=== PATIENT | female | born 1970 | race Two or more races ===

== ENCOUNTER 2020-07-20 10:27 | Emergency (ER) | payer BC, SELFPAY ==
[2020-07-20 10:46] VITALS: BP 137/73; PULSE 84; RESP 16; TEMP 37; BMI 41.5
[2020-07-20 10:46] LABS: Glucose, Whole Blood 448 mg/dL (60-115)
--- NOTE | 2020-07-20 10:55 | ED.GENADULT ---
HPI - General Adult General Chief complaint: General Medical Stated complaint: HIGH BLOOD SUGAR Time Seen by Provider: 07/20/20 10:50 Source: patient Mode of arrival: ambulatory Limitations: no limitations History of Present Illness HPI narrative: patient comes to emergency room complaining of high blood sugar. Patient states earlier this morning she was at work, started not feeling right, slightly lightheaded, patient took her blood sugar and was 448. Patient states usually her blood sugar runs in the mid 150s to 200s. Patient denies any blurry vision, states she has a mild headache, no chest pain Related Data Allergies Allergy/AdvReac Type Severity Reaction Status Date / Time No Known Allergies Allergy Unverified 06/15/20 16:49 Review of Systems Review of Systems: Constitutional : No Weight loss, No Fever, No Chills, No Night Sweats, No Fatigue, No Malaise ENT/Mouth : No Hearing loss, No Ear Pain, No Nasal Congestion, No Sinus Pain, No Hoarseness, No sore throat, No Rhinorrhea, No Swallowing Difficulty Eyes: No Eye Pain, No Swelling, No Redness, No Foreign Body, No Discharge, No Vision Changes Cardiovascular : No Chest Pain, No SOB, No Dyspnea on Exertion, No Orthopnea, No Edema, No Palpitations Respiratory : No Cough, No Sputum, No Wheezing, No Smoke Exposure, No Dyspnea Gastrointestinal : No Nausea, No Vomiting, No Diarrhea, No Constipation, No abdominal Pain, No Hematochezia, No Melena Genitourinary : no irregular bleeding, No Dysuria, No Urinary Frequency, No Hematuria, No Urinary Incontinence, No Urgency, No Flank Pain, No Urinary Flow Changes, No Hesitancy Musculoskeletal : No joint pain, No Myalgias, No Joint Swelling Skin : No Skin Lesions, No rash Neuro : No Weakness, No Numbness, No Paresthesias, No Loss of Consciousness, mild lightheadedness, No Headache Psych : No Anxiety/Panic, No Depression, No SI/HI/AH/VH, No Social Issues, Heme/Lymph: No Bruising, No Bleeding,No Lymphadenopathy Endocrine : No Polyuria, No Polydipsia, No Temperature Intolerance PMF Past Medical History Medical History Diabetes mellitus, type 2 Hypertension Hypertension Social History Social History Advance Directives: No Advance Directives Information Provided: Yes Physical Exam Vital Signs: Vital Signs: Vital Signs Temp Pulse Resp BP Pulse Ox 07/20/20 14:00 98.0 F 66 18 123/78 98 07/20/20 13:41 98.0 F 69 18 124/77 97 07/20/20 11:40 97.9 F 74 18 129/76 94 07/20/20 10:46 98.6 F 84 16 137/73 Body Mass Index 41.5 Appearance: Alert. Oriented X3. No acute distress. Eyes: Pupils equal, round and reactive to light. ENT: Pharynx normal. Neck: Normal inspection. Neck supple. No lymph nodes noted. No crepitus CVS: Normal heart rate and rhythm. Pulses normal. Normal S1 and S2 Respiratory: No respiratory distress. Breath sounds normal. No Wheezing. No rales Abdomen: Soft and nontender. No rigidity. No distention. good BS x4 Skin: Skin warm and dry. Normal skin color. Normal skin turgor. Extremities: No lower extremity edema. No lower extremity edema. No Lacerations. No Rash Neuro: Oriented X 3. No motor deficit. No sensory deficit. Moving all extermities. No slurred speech. Medical Decision Making MDM Narrative Medical decision making narrative: patient's blood glucose decreased to 194, patient asymptomatic. Patient will follow-up with her primary care physician, at this time we will not change any of her medications for diabetes. Lab Data Result diagrams: 07/20/20 11:07 07/20/20 11:07 Labs: Lab Results 07/20/20 07/20/20 07/20/20 Range/Units 10:42 11:07 11:07 WBC 7.0 (4.8-10.8) X10*3/uL RBC 5.11 (4.20-5.50) X10*6/uL Hgb 15.5 (12.0-16.0) g/dl Hct 45.3 (37-47) % MCV 88.6 (80-98) fL MCH 30.3 (27.0-33.0) pg MCHC 34.2 (31.0-35.0) g/dl RDW 12.0 (11.0-16.0) % Plt Count 128 L (160-400) X10*3/uL MPV 11.1 (9.4-12.3) fL Immature Gran % (Auto) 0.3 (0.0-0.4) % Neut % (Auto) 60.9 (45-73) % Lymph % (Auto) 31.8 (20-40) % [place] % (Auto) 5.4 (2-11) % Eos % (Auto) 1.3 (0-4) % Baso % (Auto) 0.3 (0-2) % Lymph # (Auto) 2.2 (1.2-4.9) X10*3/uL [place] # (Auto) 0.4 (0.1-1.2) X10*3/uL Eos # (Auto) 0.1 (0.0-0.4) X10*3/uL Baso # (Auto) 0.0 (0.0-0.2) X10*3/uL Abs Immat Gran (auto) 0.02 (0.00-0.03) X10*3/uL Absolute Neuts (auto) 4.3 (2.0-8.3) X10*3/uL Absolute Nucleated RBC 0.000 (0.0-0.012) X10*3/uL Nucleated RBC % (auto) 0.0 (0.0-0.2) /100WBC Sodium 134 L (135-145) mmol/L Potassium 4.4 (3.3-5.1) mmol/l Chloride 100 (96-108) mmol/L Carbon Dioxide 25 (22-29) mmol/L Anion Gap 13 (12-20) BUN 13 (9-16) mg/dL Creatinine 0.99 (0.5-1.4) mg/dL Estim Creat Clear Calc 78.1 Estimated GFR 60 POC Glucose 448 H* (60-115) mg/dL Random Glucose 457 H* (60-115) mg/dL Calcium 9.1 (8.4-10.2) mg/dL 07/20/20 Range/Units 12:46 WBC (4.8-10.8) X10*3/uL RBC (4.20-5.50) X10*6/uL Hgb (12.0-16.0) g/dl Hct (37-47) % MCV (80-98) fL MCH (27.0-33.0) pg MCHC (31.0-35.0) g/dl RDW (11.0-16.0) % Plt Count (160-400) X10*3/uL MPV (9.4-12.3) fL Immature Gran % (Auto) (0.0-0.4) % Neut % (Auto) (45-73) % Lymph % (Auto) (20-40) % [place] % (Auto) (2-11) % Eos % (Auto) (0-4) % Baso % (Auto) (0-2) % Lymph # (Auto) (1.2-4.9) X10*3/uL [place] # (Auto) (0.1-1.2) X10*3/uL Eos # (Auto) (0.0-0.4) X10*3/uL Baso # (Auto) (0.0-0.2) X10*3/uL Abs Immat Gran (auto) (0.00-0.03) X10*3/uL Absolute Neuts (auto) (2.0-8.3) X10*3/uL Absolute Nucleated RBC (0.0-0.012) X10*3/uL Nucleated RBC % (auto) (0.0-0.2) /100WBC Sodium (135-145) mmol/L Potassium (3.3-5.1) mmol/l Chloride (96-108) mmol/L Carbon Dioxide (22-29) mmol/L Anion Gap (12-20) BUN (9-16) mg/dL Creatinine (0.5-1.4) mg/dL Estim Creat Clear Calc Estimated GFR POC Glucose 325 H (60-115) mg/dL Random Glucose (60-115) mg/dL Calcium (8.4-10.2) mg/dL Discharge Plan Discharge Clinical Impression: Hyperglycemia due to diabetes mellitus Patient Disposition: Home, Self-Care Instructions: Diabetic Hyperglycemia (ED), Diabetes and Exercise (ED) Additional Instructions: Please follow-up with your primary care physician tomorrow. If you have any worsening or new symptoms, please return to the emergency room or call 911
[2020-07-20 11:11] LABS: MANUAL DIFF FLAG NO
[2020-07-20] MEDS: 0.9 % Sodium Chloride 1,000 ML 999 ML IVCONT (11:13)
[2020-07-20] MEDS: Insulin Regular, Human 100 UNIT/ML 3 ML VIAL 10 UNIT IVPUSH ×2 (11:13→14:32)
[2020-07-20 11:15] LABS: Basophils Percent Auto 0.3 % (0-2); Eosinophils Absolute Auto 0.1 X10*3/uL (0.0-0.4); Eosinophils Percent Auto 1.3 % (0-4); Hematocrit 45.3 % (37-47); Hemoglobin 15.5 g/dl (12.0-16.0); Imm Gran Abs Auto 0.02 X10*3/uL (0.00-0.03); Imm Gran Pct Auto 0.3 % (0.0-0.4); Lymphocytes Absolute Auto 2.2 X10*3/uL (1.2-4.9); Lymphocytes Percent Auto 31.8 % (20-40); Mean Corpuscular HGB Conc 34.2 g/dl (31.0-35.0); Mean Corpuscular Hemoglobin 30.3 pg (27.0-33.0); Mean Corpuscular Volume 88.6 fL (80-98); Mean Platelet Volume 11.1 fL (9.4-12.3); Monocytes Absolute Auto 0.4 X10*3/uL (0.1-1.2); Monocytes Percent Auto 5.4 % (2-11); Neutrophils Absolute Auto 4.3 X10*3/uL (2.0-8.3); Neutrophils Percent Auto 60.9 % (45-73); Platelet Count 128 X10*3/uL (160-400); Red Blood Count 5.11 X10*6/uL (4.20-5.50)
[2020-07-20 11:39] LABS: Anion Gap 13 (12-20); Blood Urea Nitrogen 13 mg/dL (9-16); Calcium 9.1 mg/dL (8.4-10.2); Carbon Dioxide 25 mmol/L (22-29); Chloride 100 mmol/L (96-108); Creatinine Clr Calc Pharmacy 78.1; Estimated Glomerular Filt Rate 60; Glucose Random 457 mg/dL (60-115); Potassium 4.4 mmol/l (3.3-5.1); Sodium 134 mmol/L (135-145)
[2020-07-20 11:40] VITALS: BP 129/76; PULSE 74; RESP 18; TEMP 36.6; O2SAT 94
[2020-07-20 12:50] LABS: Glucose, Whole Blood 325 mg/dL (60-115)
--- NOTE | 2020-07-20 13:15 | PC.NURSE ---
PT AMBULATED TO BATHROOM W/STEADY GAIT.
[2020-07-20 13:41] VITALS: BP 124/77; PULSE 69; RESP 18; TEMP 36.7; O2SAT 97
[2020-07-20 14:00] VITALS: BP 123/78; PULSE 66; RESP 18; TEMP 36.7; O2SAT 98
[2020-07-20 15:47] LABS: Glucose, Whole Blood 193 mg/dL (60-115)
== END 2020-07-20 16:09 | disposition home or self-care (01) ==
PROVIDERS: Emergency Provider Emergency Medicine; PCP Internal Medicine Geriatric Medicine
DX: E11.65 Type 2 diabetes mellitus with hyperglycemia (principal); Z79.899 Other long term (current) drug therapy
CPT/HCPCS: 36415; 80048; 82947; 85025; 96361; 96374; 96376; 99284

== ENCOUNTER → 2024-04-30 10:43 | Outpatient (BNVA) | payer BC, SELFPAY | PROVIDERS: PCP Internal Medicine Geriatric Medicine; Visit Provider Surgery ==

== ENCOUNTER 2025-05-31 15:55 | Emergency (ER) | payer BC, SELFPAY ==
[2025-05-31 15:58] VITALS: BP 161/86; PULSE 98; RESP 18; TEMP 36.9; O2SAT 96; BMI 35.4
--- NOTE | 2025-05-31 16:00 | ED.EYEPROB ---
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 She reports for about 2 weeks she has had swelling to her right upper eyelid. Today in his more painful and swollen and she now has pain around the eye itself. She reports occasional discharge from the right eye. She reports blurry vision. She wears glasses but did not bring them with her she never wears contacts denies any trauma to the eye Related Data Home Medications ?Medication ?Instructions ?Recorded ?Confirmed dulaglutide 1.5 mg/0.5 mL 1.5 mg subcut QWEEK 05/07/24 subcutaneous pen injector (Trulicity) Previous Rx's ?Medication ?Instructions ?Recorded atorvastatin 20 mg tablet 20 mg PO QPM #20 tabs 02/20/21 lisinopril 20 mg tablet 20 mg PO DAILY #20 tabs 02/20/21 metformin 1,000 mg tablet 1,000 mg PO BID #30 tabs 02/20/21 lidocaine 5 % topical patch 1 patch topical DAILY #15 ea 12/12/23 (Lidoderm) naproxen 500 mg tablet 500 mg PO BID PRN pain #30 tabs 12/12/23 peg 3350-electrolytes 236 240 ml PO Q10M colonoscopy #4,000 12/26/23 gram-22.74 gram-6.74 gram-5.86 mL gram solution (Golytely) amoxicillin 875 mg-potassium 1 tab PO Q12H #14 tabs 05/31/25 clavulanate 125 mg tablet ciprofloxacin HCl 0.3 % eye See Rx Instructions ophthalmic 05/31/25 ointment (eye) .COMPLEX #3.5 grams Allergies Allergy/AdvReac Type Severity Reaction Status Date / Time No Known Allergies Allergy Verified 05/31/25 16:00 Review of Systems Constitutional: Constitutional: Denies body ache(s) and Denies headache(s) Eyes: Eyes: Reports blurry vision, Denies diplopia, Reports eye discharge, Reports irritation, Reports itchy eyes and Reports eye pain ENT: Denies headache(s) Neurologic: Denies headache(s) Allergic/Immunologic: Allergic/Immunologic: Reports itchy eyes PMFSH Past Medical History Medical History (Updated 05/31/25 @ 16:37 by Rangel Guzman) Acute depression Anxiety High cholesterol Hypertension Hypertension Diabetes mellitus, type 2 Surgical History (Updated 12/02/24 @ 15:08 by Essie Montgomery CNA) H/O: hysterectomy Social History Social History (System 12/02/24 @ 15:08 by Essie Montgomery CNA) Alcohol intake: former Tobacco use type: Cigarette Cigarettes Per Day: 6 Advance Directives: No Advance Directives Information Provided: No Physical Exam Vital Signs: Vital Signs: Last Vital Signs Temp 98.5 F 05/31/25 16:41 Pulse 98 05/31/25 16:41 Resp 18 05/31/25 16:41 BP 161/86 H 05/31/25 16:41 Pulse Ox 96 05/31/25 16:41 O2 Del Method Room Air 05/31/25 16:41 BMI result Body Mass Index 35.4 Const: General: healthy appearing, comfortable, no acute distress, alert and awake Nutritional Appearance: well nourished Orientation/consciousness: patient oriented x3 HEENT: Head: Yes normocephalic and Yes atraumatic Eyes: Other: there is mild tenderness in the right periorbital region on the temporal side. No significant erythema or wounds. Visual Singleton: normal visual singleton by confrontation Alignment and Position: alignment normal Periorbital: periorbital findings abnormal ( there is mild right upper eyelid edema) Eyelids: Yes eyelid abnormality Conjunctivae: conjunctivae normal Sclerae: sclerae normal Corneas: corneas normal Pupils: Equal, round and reactive pupils present EOM: EOMs intact bilaterally Direct Ophthalmoscopy: normal light reflex, no photophobia and no papilledema Neck: Neck: Yes full ROM Resp: Effort & Inspection: normal respiratory effort, able to speak in complete sentences and not labored Cardio: Rate: regular rate Rhythm: regular rhythm Skin: General skin exam: elasticity normal Neuro: General: patient oriented x3 Cranial nerves: Yes CN's II-XII intact bilaterally, Yes Equal, round and reactive pupils present and Yes Bilaterally intact EOM present Cognition (Neuro): normal cognition Course Course Course Narrative: This is a Rapid Medical Examination (RME) performed by Daniela Payne PA-C in triage. Full HPI, ROS, assessment and treatment plan per primary provider in the Main ED. Hx: 55 yo F hx DM here for eval of right eye pain x2 weeks, worsening. currently staying with her sister who has a dog - is unsure if this is allergy related. reports pain/swelling/itching to right eye. does not recall getting anything in her eye. reports eye sometimes feels stuck shut. does not wear corrective lenses. PE/vitals: noted swelling to right periorbital region and right upper eyelid. pain w/ lateral movement of right eye. Plan: Tetracaine/fluorescein, visual acuity Medications Administered Discontinued Medications Generic Name Dose Route Start Last Admin Trade Name Ale PRN Reason Stop Dose Admin Fluorescein Sodium 1 strip 05/31/25 16:00 05/31/25 16:05 Fluorescein Sodium Strip EYE-RIGHT 05/31/25 16:01 1 strip ONCE ONE Administration Tetracaine HCl 1 drop 05/31/25 16:00 05/31/25 16:05 Tetracaine Hcl/Pf 0.5% Oph Linette 4 Ml Drops EYE-RIGHT 05/31/25 16:01 1 drop ONCE ONE Administration Medical Decision Making Medical Decision Making MDM Narrative: 55-year-old female presents for evaluation of right eyelid pain and swelling. On exam she appears to have a hordeolum, this started about 2 weeks ago and she does complain of some discharge from the eye. Fluorescein staining was performed showing no uptake to suggest corneal abrasion or iritis. The patient has no concerning signs for retinal detachment. Her visual acuity is poor, she was 20/50 bilaterally, 20/40 in the unaffected left eye and 20/70 with the right eye, though she was not wearing her corrective lenses. Intra-ocular pressure was obtained in the affected right eye with a result of 15.3 mmHg. This rules out glaucoma, no foreign body visualized. The patient's physical exam is actually reassuring, however given the tenderness in the temporal region we will start her on Augmentin in addition to ciprofloxacin ointment Differential Diagnosis Differential Diagnoses: The differential diagnosis associated with the presentation includes hordeolum Conjunctivitis Blepharitis Preseptal cellulitis less likely Discharge Plan Discharge Clinical Impression: Hordeolum of right eye Patient Disposition: Home, Self-Care Instructions: Stye (ED) Additional Instructions: it looks like you have a stye of the right eye. I recommend warm compresses for 10-15 minutes every 4 hours use the ciprofloxacin eye ointment as prescribed. Take Augmentin twice daily for 1 week you may follow up with Ophthalmology if her symptoms are not improving, return to the ER if they are worsening Prescriptions: New amoxicillin-pot clavulanate 875-125 mg tablet 1 tab PO Q12H Qty: 14 0RF ciprofloxacin HCl 0.3 % ointment See Rx Instructions .ROUTE .COMPLEX Qty: 3.5 0RF Rx Instructions: apply 1/2 inch ribbon into affected eye(s) 3 times daily for 2 days; then twice daily for 5 days No Action Trulicity 1.5 mg/0.5 mL pen injector 1.5 mg subcut QWEEK metformin 1,000 mg tablet 1,000 mg PO BID Qty: 30 0RF lisinopril 20 mg tablet 20 mg PO DAILY Qty: 20 0RF atorvastatin 20 mg tablet 20 mg PO QPM Qty: 20 0RF naproxen 500 mg tablet 500 mg PO BID PRN (Reason: pain) Qty: 30 0RF lidocaine [Lidoderm] 5 % adhesive patch,medicated 1 patch topical DAILY Qty: 15 0RF Rx Instructions: leave on most painful area for up to 12 hrs peg 3350-electrolytes [Golytely] 236-22.74-6.74 -5.86 gram recon soln 240 ml PO Q10M Qty: 4000 0RF Rx Instructions: as per split prep instructions, until fecal effluent is clear Interventions: ED Discharge Assessment Last Done: 05/31/25 16:41 Discharge Date/Time: 05/31/25 16:49 Print Language: Turkmen
[2025-05-31] MEDS: Fluorescein Sodium STRIP 1 STRIP EYE-RIGHT (16:05)
[2025-05-31] MEDS: Tetracaine HCl/PF 0.5% Oph Sol 4 ML DROPS 1 DROP EYE-RIGHT (16:05)
[2025-05-31 16:41] VITALS: BP 161/86; PULSE 98; RESP 18; TEMP 36.9; O2SAT 96
--- OUTSIDE RECORDS SUMMARY | 2025-05-31 16:49 | XMS_ITS | Clinical Summary ---
Author Organization [facility] Address [address] [place] [phone] Phone Care Team Providers Care Paper Testing Supervisor Name Role Phone Name, Evelio ROSAS Primary Care Provider Allergies No known active allergies Medications lisinopril (PRINIVIL,ZESTRI L) 10 MG tablet Take 10 mg by mouth daily. Active metFORMIN (FORTAMET) 1000 MG (OSM) 24 hr tablet Take 1,000 mg by mouth daily with dinner. Active aspirin 81 mg chewable tablet Take 81 mg by mouth daily. Active atorvastatin (LIPITOR) 10 MG tablet Take 10 mg by mouth daily. Active Social History Tobacco Use Types Packs/Day Years Used Date Smoking Tobacco: Never Assessed Education Answer Date Recorded Are you interested in more education? Not on melvi e 01/24/2023 Are you concerned about learning? Not on file 01/24/2023 No 01/24/2023 No 01/24/2023 Digital Access Answer Date Recorded No 02/22/2023 No 02/22/2023 Reliable internet access at home? Not on file 02/22/2023 Device with a working camera? Not on file Comments Unknown Sex and Gender Information Value Date Recorded Sex Assigned at Not on file Legal Sex Female 9:33 PM EDT Gender Identity Not on file Sexual Orientation Not on file Last Filed Vital Signs Vital Sign Reading Time Taken Comments Blood Pressure 120/78 05/27/2019 10:59 PM EDT Pulse 77 05/27/2019 10:59 PM EDT Temperature 36.2 C (97.2 F) 05/27/2019 8:59 PM EDT Respiratory Rate 18 05/27/2019 10:59 PM EDT Oxygen Saturation 95% 05/27/2019 10:59 PM EDT Inhaled Oxygen Concentration - - Weight 102.1 kg (225 lb) 05/27/2019 8:59 PM EDT Height - - Body Mass Index - - Plan of Treatment Health Maintenance Due Date Last Done Comments Adult Td,Tdap Booster 1972 CREATININE LEVEL 1972 LIPID PANEL 1972 POTASSIUM LEVEL 1972 DEPRESSION SCREENING 1984 SMOKING Hx and SMOKELESS TOB ACCO SCREENING 02/01/1985 HEPATITIS C SCREENING 02/01/1990 HIV ONE-TIME SCREENING (18-6 5 YEARS) 02/01/1990 PAP SMEAR 02/01/1993 MAMMOGRAM 2012 COLOGUARD 02/01/2017 COLONOSCOPY 02/01/2017 COLORECTAL CANCER SCREENING 02/01/2017 FIT TEST 02/01/2017 FOBT 02/01/2017 SIGMOIDOSCOPY 02/01/2017 VIRTUAL COLONOSCOPY 02/01/2017 PNEUMOCOCCAL VACCINES (50+ y ears) (1 of 1 - PCV) 02/01/2022 ZOSTER VACCINES (1 of 2) 02/01/2022 INFLUENZA VACCINE (#1) 2025 COVID-19 VACCINE ( - 2023-2 5 season) 2025 HEPATITIS A VACCINES Aged Out No long er eligible based on patient's age to complete this topic HIB VACCINES Aged Out No longer eligi ble based on patient's age to complete this topic MENINGOCOCCAL VACCINES (ACWY) Aged Out No longer eligible based on patient's age to complete this topic MENINGOCOCCAL VACCINES (B) Aged Out N o longer eligible based on patient's age to complete this topic Medical Devices Not on file Insurance [facility] OUT OF STATE PPO BLUE CROSS OUT OF STATE PPO BLUE CROSS OUT OF STATE PPO BLUE CROSS OUT OF STATE PPO BLUE CROSS OUT OF STATE PPO BLUE CROSS OUT OF STATE PPO BLUE CROSS OUT OF STATE PPO BLUE CROSS OUT OF STATE PPO BLUE CROSS OUT OF STATE PPO Care Teams Paper Testing Supervisor Relationship Specialty Start Date End Date Name, MD Evelio [address] [place] [id number] PCP - General Geriatric Psychiatry 05/27/19 Additional Source Comments The information contained in this document represents components of the legal health record. It is not the complete legal health record.[facility]
== END 2025-05-31 16:49 | disposition home or self-care (01) ==
PROVIDERS: Emergency Provider Emergency Medicine; PCP Internal Medicine Geriatric Medicine
DX: H00.011 Hordeolum externum right upper eyelid (principal); H57.11 Ocular pain, right eye
CPT/HCPCS: 99282; 99283